=== PATIENT | female | born 1990 | race Two or more races ===

== ENCOUNTER → 2023-11-20 15:00 | Outpatient (REF) | payer OTHER, SELFPAY | LOC: WDC 15:00 | PROVIDERS: ATTENDING PHYSICIAN Family Medicine | DX: N63.25 Unspecified lump in the left breast, overlapping quadrants (principal); N63.10 Unspecified lump in the right breast, unspecified quadrant | CPT/HCPCS: 76642 ==

== ENCOUNTER 2024-07-02 01:59 | Emergency (ER) | payer OTHER, SELFPAY ==
[2024-07-02 02:01] VITALS: BP 118/74
[2024-07-02] MEDS: TORADOL 15 MG IV (02:31)
[2024-07-02] MEDS: NSS 1000 IV (02:37)
[2024-07-02 02:39] VITALS: BMI 25.9
[2024-07-02 02:40] LABS: % Basophils 0.1 % (0-2); % Eosinophils 1.3 % (0-6); % Immature Granulocytes 0.3 % (0-0.5); % Lymphocytes 20.4 % (20.5-51.1); % Neutrophils 70.9 % (42.2-75.2); Absolute Eosinophils 0.1 10^3/uL (0-0.7); Absolute Lymphocytes 1.5 10^3/uL (1.2-3.4); Absolute Monocytes 0.5 10^3/uL (0.1-0.6); Absolute Neutrophils 5.1 10^3/uL (1.4-6.5); Hematocrit 34.5 % (37.0-47.0); Hemoglobin 11.5 g/dL (12.0-16.0); Mean Corp Hgb Conc. 33.3 g/dL (33.0-37.0); Mean Corpuscular Hgb 28.7 pg (27.0-31.0); Mean Platelet Volume 11.5 fL (7.4-10.4); Nucleated Red Blood Cells % 0 %; Platelet Count 185 10^3/uL (130-400); Red Blood Cell Count 4.01 10^6/uL (4.20-5.40); Red Cell Dist. Width 13.8 % (11.5-14.5); White Blood Cell Count 7.2 10^3/uL (4.8-10.8)
--- NOTE | 2024-07-02 02:43 | ED.GENMED ---
History of Present Illness
General
Chief Complaint: Flank Pain
Source: patient and spouse
Exam Limitations: none
Time Seen by Provider: 07/02/24 02:15
Nursing documentation reviewed up to this point in time: agreed with
History of Present Illness
History of Present Illness:
34-year-old female presenting to the emergency department today with concerns of left-sided flank has been off and on over the past 10 days associated urinary symptoms. Treated for a UTI earlier today from urgent care was given nitrofurantoin.
Denies any specific fevers or vomiting.
Review of Systems
Review of Systems
Allergies reviewed?: Yes
All Other Systems: ROS reviewed and negative except as documented in HPI and ROS
Phy Exam
Physical Exam
Physical Exam:
GENERAL: Alert , in no apparent distress
EYE: pupils equal and reactive
NECK: Supple, no significant adenopathy.
ENT: o/p clr, mmm.
CARDIAC: Regular rate and rhythm .
LUNGS: Clear breath sounds bilaterally, no acute respiratory distress, no wheezes/rales/rhonchi
ABDOMEN: Soft, without focal tenderness, no r/g, no cvat
NEUROLOGICAL: Alert and oriented, no focal neuro deficits
SKIN: Warm and dry, skin intact.
MUSCULOSKELETAL: No edema, well perfused.
PSYCH: Normal and appropriate interaction.
Course
Orders/Labs/Results
Orders:
Orders
07/02/24 02:24
Test Result ONCE
07/02/24 02:25
Complete Blood Count/With Diff Urgent
Comprehensive Metabolic Panel Urgent
HCG, Serum Qualitative Screen Urgent
Urinalysis Reflex To Culture Urgent
Date Specimen was Collected: 07/02/24
Time Specimen was Collected: 02:16
Urine Microscopic Reflex Cult Urgent
Urine Culture Urgent
JAY JAY Source: U
Specimen Description:
Date Specimen was Collected: 07/02/24
Time Specimen was Collected: 02:16
07/02/24 02:26
CT Abd/pel Without Iv Or Oral Urgent
Comment:
Reason For Exam: L flank pain
Ketorolac [Toradol] 15 mg IV NOW STA
07/02/24 02:27
0.9% Sodium Chloride 1000 ml [Nss] 1,000 ml IV BOLUS
07/02/24 04:38
CefTRIAXone [Rocephin] 1,000 mg IV NOW STA
Abnormal Lab Results
07/02/24
02:25
RBC 4.01 L 10^6/uL
(4.20-5.40)
Hgb 11.5 L g/dL
(12.0-16.0)
Hct 34.5 L %
(37.0-47.0)
MPV 11.5 H fL
(7.4-10.4)
Lymphocytes % 20.4 L %
(20.5-51.1)
Chloride 110 H mmol/L
(98-107)
Ur Occult Blood Reflex 4+ A
(Negative)
Leukocyte Esterase Rfl 2+ A
(Negative)
Urine RBC 50-60 A /HPF
(0-2)
Urine WBC (Reflex) >100 A /HPF
(0-5)
Urine Bacteria (Reflex) Few A
(Negative)
Urine Albumin (Reflex) 3+ A
(Neg - Trace)
07/02/24 02:25
07/02/24 02:25
Vital Signs
Initial and Last Documented VS:
Initial Vital Signs
Temp Pulse Resp BP Pulse Ox
98.7 F 80 24 118/74 100
07/02/24 02:01 07/02/24 02:01 07/02/24 02:01 07/02/24 02:01 07/02/24 02:01
Last Documented Vital Signs
Temp Pulse Resp BP Pulse Ox
98.7 F 78 14 112/70 99
07/02/24 02:01 07/02/24 04:40 07/02/24 04:40 07/02/24 04:40 07/02/24 04:40
MDM/Problems Addressed
MDM/Problems Addressed:
34-year-old female presenting to the emergency department today with concerns of left-sided flank pain intermittently as well as urinary symptoms. Treated for UTI today from urgent care. On arrival vital signs are normal patient in no distress
labs were obtained that did not show any emergent findings. Otherwise CT scan was obtained showed potential urinary tract infection no evidence of stone or obstruction. Also some evidence of chronic mesenteric panniculitis. Patient notified of
results was started on antibiotics otherwise stable for outpatient follow-up. Return precautions given.
*Critical Care Note
Total Time (30-74mins, 75-104mins- exclusive of procedures): Not Applicable
ED Attending Note
-
Portions of this chart may have been created with voice recognition software.� Occasional wrong word or��sound alike� substitutions may have occurred due to the inherent limitations of voice recognition software.
Discharge Plan
Departure
Patient Disposition: Home (Routine Discharge)
Date of Disposition: 07/02/24
Time of Disposition: 04:40
Patient with high blood pressure during this ER visit?: No
Condition: Good
Covid-19: Not Applicable
Discharge Problem:
Urinary tract infection
Instructions: Urinary tract infections in adults
Prescriptions:
New
cefpodoxime 200 mg tablet
200 mg PO BID 10 Days Qty: 20 0RF
Referrals:
Kenny Bowman DO [Family Provider] -
Activity Restrictions/Additional Instructions:
You came to the emergency department today with concerns of urinary symptoms. You are found to have a urinary tract infection but no signs of significant complications on CT. Please follow-up with your primary care doctor or urology closely in the
next week or so. Return for any worsening, new or concerning symptoms. Please take the prescribed antibiotic.
Interventions
Interventions:
*Risk Screen - Suicide Last Done: 07/02/24 02:01
*General Assessment Last Done: 07/02/24 02:41
*Neglect/Abuse Screening Last Done: 07/02/24 02:01
*ED- Fall Risk Assessment Last Done: 07/02/24 02:41
*ED COVID-19 Vaccine History Last Done: 07/02/24 02:41
XA-Vxehoa-Gscumztnei Assessment Last Done: 07/02/24 02:41
ED-Female Genitourinary Assessment Last Done: 07/02/24 02:41
Discharge Date and Time
Print Language: DANISH
[2024-07-02 02:47] LABS: Urine Albumin 3+ (Neg - Trace); Urine Bilirubin Negative (Negative); Urine Character Cloudy (Clear); Urine Color Yellow; Urine Glucose Negative (Negative); Urine Ketone Negative (Negative); Urine Leukocyte 2+ (Negative); Urine Nitrite Negative (Negative); Urine Occult Blood 4+ (Negative); Urine Urobilinogen Negative (Neg - 1+); Urine pH 6.5 (5.0-9.0)
[2024-07-02 03:00] LABS: HCG, Serum Qualitative Screen Negative
[2024-07-02 03:02] LABS: Urine Bacteria Few (Negative); Urine Red Blood Cell 50-60 /HPF (0-2); Urine White Cell >100 /HPF (0-5)
[2024-07-02 03:17] LABS: ALT (SGPT) 17 U/L (0-35); AST (SGOT) 17 U/L (14-36); Alkaline Phosphatase 62 U/L (38-126); Blood Urea Nitrogen 14 mg/dl (7-17); Calcium 8.8 mg/dl (8.4-10.2); Carbon Dioxide 25 mmol/L (22-30); Chloride 110 mmol/L (98-107); Estimated Creatinine Clearance 86 ml/min; Glucose 94 mg/dl (70-99); Potassium 4.1 mmol/L (3.5-5.1); Sodium 142 mmol/L (135-145); Total Bilirubin 0.5 mg/dl (0.2-1.3); Total Protein 6.8 g/dl (6.3-8.2); eGFR > 60.00
[2024-07-02 03:50] VITALS: BP 107/70
[2024-07-02 04:40] VITALS: BP 112/70
[2024-07-02] MEDS: ROCEPHIN 1000 MG IV (04:48)
[2024-07-02 04:55] VITALS: BP 108/70
== END 2024-07-02 05:29 | disposition home or self-care (01) ==
LOC: EMR 01:59
PROVIDERS: EMERGENCY PHYSICIAN Emergency Medicine; FAMILY PHYSICIAN Family Medicine
DX: R10.9 Unspecified abdominal pain (principal); N39.0 Urinary tract infection, site not specified; K65.4 Sclerosing mesenteritis
CPT/HCPCS: 99284; 96374; 96375; 96361; 74176; 80053; 81003; 81015; 84703; 85025; 87086

== ENCOUNTER 2024-09-24 21:38 | Emergency (ER) | payer OTHER, SELFPAY ==
[2024-09-24 21:43] VITALS: BP 106/69
[2024-09-25 00:09] VITALS: BP 121/78
[2024-09-25] MEDS: TYLENOL 1000 MG PO (02:27)
[2024-09-25] MEDS: XYLOCAINE VISCOUS CUP 15 ML PO (02:27)
[2024-09-25 03:04] LABS: COVID-19 Antigen Negative (Negative)
[2024-09-25 03:44] VITALS: BP 98/57
[2024-09-25 04:06] VITALS: BP 98/57
--- NOTE | 2024-09-25 04:10 | ED.GENMED ---
History of Present Illness
General
Chief Complaint: Throat Problem
Source: patient
Exam Limitations: none
Time Seen by Provider: 09/25/24 01:59
Nursing documentation reviewed up to this point in time: agreed with
History of Present Illness
History of Present Illness:
see MDM
Past History
Past History
ED Past Medical History: None
ED Past Surgical History: None
Social History
Tobacco: Non-smoker
Alcohol: None
Review of Systems
Review of Systems
Allergies reviewed?: Yes
All Other Systems: Not applicable
Phy Exam
Physical Exam
Physical Exam:
See MDM
Course
Orders/Labs/Results
Orders:
Orders
09/25/24 01:03
Rapid Strep Group A Urgent
JAY JAY Source: Throat/Pharynx
Specimen Description:
Date Specimen was Collected: 09/25/24
Time Specimen was Collected: 01:00
Throat Culture, Comprehensive Urgent
JAY JAY Source: Throat/Pharynx
Specimen Description:
Date Specimen was Collected: 09/25/24
Time Specimen was Collected: 01:00
09/25/24 02:22
Acetaminophen [Tylenol] 1,000 mg PO NOW STA
Viscous Lidocaine 2% [Xylocaine Viscous Cup] 15 ml PO NOW STA
09/25/24 02:32
COVID-19 Antigen Urgent
Source: Nasal Swab
Influenza A+B Rapid Molecular Urgent
JAY JAY Source: Nasal Swab
Specimen Description:
09/25/24 03:47
Amoxicillin [Amoxil] 500 mg PO NOW STA
Vital Signs
Initial and Last Documented VS:
Initial Vital Signs
Temp Pulse Resp BP Pulse Ox
37.1 C 105 16 106/69 100
09/24/24 21:43 09/24/24 21:43 09/24/24 21:43 09/24/24 21:43 09/24/24 21:43
Last Documented Vital Signs
Temp Pulse Resp BP Pulse Ox
36.7 C 102 16 98/57 99
09/25/24 04:06 09/25/24 04:06 09/25/24 04:06 09/25/24 04:06 09/25/24 04:13
MDM/Problems Addressed
Differential Diagnosis Includes:
see MDM
MDM/Problems Addressed:
Note:
CHIEF COMPLAINT(S)
Sore throat, primarily on one side.
HISTORY OF PRESENT ILLNESS
The patient is a female currently 13 weeks , presenting with a sore throat both sides, which began the previous night. The patient reports no fever, vomiting, or cough. sore throat has been really painful. she has 2 kids but they are not
sick. 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 The sore throat does not significantly impair her ability to swallow, but it causes discomfort.
she has not had any neck stiffness, fever, cough, congestion
she tried tylenol last night but nothing today
REVIEW OF SYSTEMS
- General: No fever.
- Respiratory: No cough reported.
- Ear, Nose, and Throat: Sore throat mainly on one side, congestion present, no difficulty swallowing despite discomfort.
PHYSICAL EXAM
GENERAL: Alert , in no apparent distress, tolerating secretions
EYE: pupils equal and reactive
NECK: Supple, bilateral tonsillar lymphadenopathy slightly tender, full range of motion painless
ENT: b/l TM s clear, moderate pharynx erythematous but no tonsillar hypertrophy or exudates, uvula midline, no hoarseness
CARDIAC: Heart rate 102, no edema
LUNGS: Clear breath sounds bilaterally, no acute respiratory distress, no wheezes/rales/rhonchi, occ cough
NEUROLOGICAL: Alert and oriented, no focal neuro deficits
SKIN: Warm and dry, skin intact.
MUSCULOSKELETAL: No edema, well perfused.
PSYCH: Normal and appropriate interaction.
PLAN
- Conduct testing for influenza and COVID-19 to exclude viral infections.
- Recommend topical numbing medication or spray for pain relief, such as one with a banana flavor.
- Advise the use of acetaminophen (Tylenol) for pain management, considering the patients .
- Avoid the use of steroids due to the .
- Consider applying topical pain relief externally on the throat if glands are swollen.
DIFFERENTIAL DIAGNOSIS
The Differential Diagnosis includes, in no particular order and is not limited to:
1. Viral pharyngitis.
2. Bacterial pharyngitis.
3. Allergic rhinitis.
4. Tonsillitis.
5. Strep throat.
6. Influenza.
7. COVID-19.
8. Mononucleosis.
9. Gastroesophageal reflux disease.
10. Laryngitis.
Disposition:
SUMMARY OF ENCOUNTER
The patient is a 34-year-old female who is currently 13 weeks , presenting with a sore throat that started 24 hours ago. She reports no fever, cough, or significant chills, but mentions subjective chills. The patient also experiences painful
swallowing and has tender, swollen glands. Physical examination revealed moderate pharyngeal erythema without exudates, uvular deviation, or tonsillar hypertrophy. The patient was alert, tolerating oral fluids well, and appeared non-toxic. Vital
signs were stable, and her lungs were clear. Considering the patients and symptoms, rapid flu, COVID-19, and strep tests were conducted and returned negative. She was administered viscous lidocaine and acetaminophen, which resulted in
symptomatic relief. Despite concerns of dehydration, the patient appeared hydrated and declined the offer of IV fluids. Given the centor criteria for strep, she was counselled and prescribed amoxicillin to start if symptoms persist or worsen. It was
discussed that the condition may be viral and the possibility of mononucleosis was entertained. The patient was educated about potential side effects and was discharged.
She is not having any related complaints
DISPOSITION
Discharge.
PLAN
- Administer amoxicillin empirically for possible bacterial infection if symptoms do not improve or across 24 hours. - Provide symptomatic relief with acetaminophen and viscous lidocaine. - Advise the patient to watch for rash or allergic reactions
if the antibiotics are started.
PATIENT EDUCATION AND COUNSELING
The patient was advised about the use of amoxicillin and potential side effects. She was instructed to monitor for a rash if she starts the medication and informed that symptoms might be viral. Discussions were made regarding the management of her
sore throat and watching for worsening symptoms or if she becomes more dehydrated.
FOLLOW-UP INSTRUCTIONS
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
MEDICATION RECONCILIATION
Amoxicillin prescribed to be used empirically if condition does not improve. Acetaminophen and viscous lidocaine provided for symptomatic relief.
MEDICAL DECISION MAKING
- Number and Complexity of Problems Addressed:
Viral pharyngitis, Bacterial pharyngitis, Allergic rhinitis, Tonsillitis, Strep throat, Influenza, COVID-19, Mononucleosis, Gastroesophageal reflux disease, Laryngitis.
- Data:
Category 1
- Flu, COVID-19, and rapid strep tests were ordered and returned negative.
- Reassessment of vital signs was performed and confirmed to be stable.
-Risk:
Consideration of Admission/Observation: Escalation of care including admission/observation was considered given the complexity and risk of the patients presenting complaint, especially in the context of . However, ultimately I feel the
patient is safe for outpatient management with close follow-up. Reasoning: Work-up reassuring, does not reveal any acute life/organ-threatening processes, patients symptoms well controlled upon reevaluation, reexamination is reassuring, vitals are
stable, patient agreeable with discharge, reliable for follow-up.
DIAGNOSIS
Pharyngitis, unspecified (J02.9). Viral sore throat suspicion.
*Pulse Oximetry
SaO2: 99
Oxygen Mode of Delivery: Room air
Patient hypoxic: no (100)
*Critical Care Note
Total Time (30-74mins, 75-104mins- exclusive of procedures): Not Applicable
ED Attending Note
-
Portions of this chart may have been created with voice recognition software.� Occasional wrong word or��sound alike� substitutions may have occurred due to the inherent limitations of voice recognition software.
Discharge Plan
Departure
Patient Disposition: Home (Routine Discharge)
Date of Disposition: 09/25/24
Time of Disposition: 03:45
Patient with high blood pressure during this ER visit?: No
Condition: Fair
Covid-19: Not Applicable
Discharge Problem:
Pharyngitis
Instructions: Sore Throat, Adult (DC)
Prescriptions:
New
amoxicillin 875 mg tablet
875 mg PO BID Qty: 14 0RF
No Action
cefpodoxime 200 mg tablet
200 mg PO BID 10 Days Qty: 20 0RF
Referrals:
Kenny Bowman DO [Family Provider, Family Practice]
Stand Alone Forms: Return to Work
Activity Restrictions/Additional Instructions:
Your sore throat may be viral. Your strep test, COVID test and flu test were negative. Take Tylenol 1 g 3 times a day as needed for pain. Drink fluids. Use [id number] remedies like Cetacaine spray, Vicks on your neck, throat lozenges to
help with your pain.
You can try the amoxicillin twice a day for 7 days just in case this is strep throat. If you break out in a rash you should be seen, it could be a rash from mononucleosis which is a virus. Return for severe pain, voice change, high fever or any
concerns
Interventions
Interventions:
*Risk Screen - Suicide Last Done: 09/24/24 21:43
*General Assessment Last Done: 09/24/24 21:43
*Neglect/Abuse Screening Last Done: 09/24/24 21:43
*ED- Fall Risk Assessment Last Done: 09/24/24 21:43
*ED COVID-19 Vaccine History Last Done: 09/24/24 21:43
*Nursing Disposition Last Done: 09/25/24 04:06
ED-EENT Assessment Last Done: 09/25/24 00:55
ED- Pulmonary Assessment Last Done: 09/25/24 00:50
Discharge Date and Time
Discharge Date/Time: 09/25/24 04:07
Print Language: [id number]
== END 2024-09-25 04:07 | disposition home or self-care (01) ==
LOC: EMR 21:38
PROVIDERS: Physician Assistant; EMERGENCY PHYSICIAN Student in an Organized Health Care Education/Training Program; FAMILY PHYSICIAN Family Medicine
DX: O99.511 Diseases of the respiratory system complicating pregnancy, first trimester (principal); J02.9 Acute pharyngitis, unspecified; Z11.52 Encounter for screening for COVID-19; Z3A.13 13 weeks gestation of pregnancy
CPT/HCPCS: 99283; 87070; 87502; 87811; 87880